=== PATIENT | male | born 1970 | race Caucasian/White ===

== ENCOUNTER 2020-02-02 05:42 | Emergency (ER) | payer MEDICAID ==
[2020-02-02] MEDS ORDERED: MORPHINE SULFATE 10 MG/ML INJ IV ONE ×2 (06:05→09:14)
[2020-02-02] MEDS ORDERED: ONDANSETRON HCL INJ/PF 4 MG/2 ML SDV IV ONE (06:06)
[2020-02-02 06:14] LABS: ABSOLUTE BASOPHILS # (AUTO) 0.1 10^3/uL (0.0-0.2); ABSOLUTE EOSINOPHILS # (AUTO) 0.3 10^3/uL (0.0-0.6); ABSOLUTE LYMPHOCYTES (AUTO) 1.8 10^3/uL (0.5-4.7); ABSOLUTE MONOCYTES (AUTO) 0.8 10^3/uL (0.1-1.4); ABSOLUTE NEUT (AUTO) 6.7 10^3/uL (1.7-8.2); BASOPHILS % (AUTO) 0.6 % (0-2); EOSINOPHILS % (AUTO) 3.3 % (0-6); HEMATOCRIT 46.7 % (37.9-51.0); HEMOGLOBIN 16.2 g/dL (13.5-17.0); LYMPHOCYTES % (AUTO) 18.7 % (13-45); MEAN CORPUSCULAR HEMOGLOBIN 32.8 pg (27.0-33.4); MEAN CORPUSCULAR HGB CONC 34.8 g/dL (32.0-36.0); MEAN CORPUSCULAR VOLUME 94 fl (80-97); MONOCYTES % (AUTO) 8.4 % (3-13); PLATELET COUNT 239 10^3/uL (150-450); RED BLOOD COUNT 4.96 10^6/uL (4.35-5.55); RED CELL DISTRIBUTION WIDTH 14.3 % (11.5-14.0); TOTAL CELLS COUNTED % (AUTO) 100 %; WHITE BLOOD COUNT 9.7 10^3/uL (4.0-10.5)
[2020-02-02 06:31] LABS: INTERNATIONAL RATION (INR) 2.46; PROTHROMBIN TIME 27.2 SEC (11.4-15.4)
[2020-02-02 06:32] LABS: ALBUMIN 4.5 g/dL (3.5-5.0); ALKALINE PHOSPHATASE 63 U/L (38-126); ANION GAP 6 (5-19); ASPARTATE AMINO TRANSFERASE 40 U/L (17-59); BILIRUBIN,TOTAL 0.4 mg/dL (0.2-1.3); BLOOD UREA NITROGEN 18 mg/dL (7-20); CALCIUM 9.4 mg/dL (8.4-10.2); CARBON DIOXIDE 33 mmol/L (22-30); CHLORIDE 100 mmol/L (98-107); CREATINE KINASE 271 U/L (55-170); GLUCOSE 127 mg/dL (75-110); PARTIAL THROMBOPLASTIN TIME 41.5 SEC (23.5-35.8); POTASSIUM 3.9 mmol/L (3.6-5.0); TOTAL PROTEIN 7.3 g/dL (6.3-8.2)
[2020-02-02 06:44] LABS: CREATINE KINASE MB 3.77 ng/mL (<4.55)
[2020-02-02 06:47] LABS: TROPONIN I < 0.012 ng/mL
--- NOTE | 2020-02-02 07:53 | RADIOLOGY REPORT (SQ) ---
EXAM: XR Chest, 1 View EXAM DATE/TIME: 02/02/2020 05:55 CLINICAL HISTORY: The patient is 49 years old and is Male; chest pain TECHNIQUE: Frontal view of the chest. COMPARISON: No relevant prior studies available. FINDINGS: LUNGS: Apparent extraneous artifact or possibly postsurgical change projecting over the left upper lung. The lungs are otherwise clear. No consolidation. PLEURAL SPACE: Unremarkable. No pneumothorax. HEART: Mild enlargement of the cardiac silhouette. MEDIASTINUM: Unremarkable. BONES/JOINTS: Degenerative changes of the spine. No obvious acute fracture. TUBES, LINES AND DEVICES: Left-sided pacemaker in place with single lead terminating at the level of the right ventricle. UPPER ABDOMEN: The left hemidiaphragm is slightly elevated. IMPRESSION: No acute findings visualized in the chest.
[2020-02-02] MEDS ORDERED: ASPIRIN 81 MG TABLET, CHEWABLE ONE (08:16)
[2020-02-02] MEDS ORDERED: ASPIRIN 81 MG TABLET, CHEWABLE PO ONE (08:16)
[2020-02-02] MEDS ORDERED: CARVEDILOL 12.5 MG TABLET PO ONE (08:32)
[2020-02-02] MEDS ORDERED: FUROSEMIDE INJ/PF 20 MG/2 ML SDV IV ONE (09:11)
[2020-02-02] MEDS ORDERED: AMIODARONE HCL 200 MG TABLET PO ONE (09:11)
[2020-02-02] MEDS ORDERED: ISOSORBIDE DINITRATE 10 MG TABLET PO ONE (09:13)
[2020-02-02] MEDS ORDERED: DULOXETINE HCL 30 MG CAPSULE.DR PO ONE (09:16)
--- NOTE | 2020-02-02 10:25 | RADIOLOGY REPORT (SQ) ---
EXAM DESCRIPTION: CTA CHEST IMAGES COMPLETED DATE/TIME: 02/02/2020 9:38 am REASON FOR STUDY: chest pain COMPARISON: Same day radiograph TECHNIQUE: CT scan of the chest performed using helical scanning technique with dynamic intravenous contrast injection. Images reviewed with lung, soft tissue and bone windows. Reconstructed coronal and sagittal MPR images reviewed. Additional 3 dimensional post-processing performed to develop Maximal Intensity Projection images ([place] P). All images stored on PACS. All CT scanners at this facility use dose modulation, iterative reconstruction, and/or weight based d osing when appropriate to reduce radiation dose to as low as reasonably achievable (ALARA). [facility]: Dose Right [facility]: CareDose [facility]: Dose Right [facility]: Teradose 4D [facility]: [employer] CONTRAST TYPE AND DOSE: contrast/concentration: Isovue 350.00 mmol/ml; Total Contrast Delivered: 75. 0 ml; Total Saline Delivered: 70.0 ml Contrast bolus optimized for the pulmonary arteries. Not diagnostic for the aorta. RENAL FUNCTION: Creatinine 1.03 RADIATION DOSE: CT Rad equipment meets quality standard of care and radiation dose reduction techniq ues were employed. CTDIvol: 23.2 - 35.9 mGy. DLP: 1314 mGy-cm. . LIMITATIONS: None. FINDINGS: LUNGS AND PLEURA: Postsurgical changes within the left hemithorax with left hilar surgical clips. There is mild nonspecific left lower lobe consolidation and ground-glass attenuation along t he posteromedial aspect. Mild herniation of the left lung parenchyma laterally, likely postsurgical related. No significant pleural effusion. No pneumothorax. AORTA AND GREAT VESSELS: Aneurysmal dilation of the ascending aorta. Aortic root measures up to 4.6 cm. Mild tortuosity and scattered atherosclerosis of the descending thoracic aorta. Evaluation for dissection not possible secondary to bolus timing. HEART: Cardiomegaly. No pericardial effusion. No significant calcified coronary atherosclerosis. N ormal right to left ventricular ratio. No significant coronary artery calcifications. PULMONARY ARTERIES: No emboli visualized in the main pulmonary arteries or the segmental branches. HILAR AND MEDIASTINAL STRUCTURES: Postsurgical changes within the left hilum. No discrete adenopathy . HARDWARE: Surgical clips within the left hilum. Left-sided cardiac pacer with leads in the right atr ium and right ventricle. UPPER ABDOMEN: No significant findings. Limited exam. THYROID AND OTHER SOFT TISSUES: No masses. No adenopathy. BONES: No acute or significant finding. 3D MIPS: Confirm above findings. OTHER: No other significant finding. IMPRESSION: 1. No evidence of pulmonary embolus or other acute intrathoracic process. 2. Postsurgical changes within the left hemithorax with nonspecific lower lobe consolidation ground- glass attenuation, likely postsurgical change. 3. Cardiomegaly. Aneurysmal dilation of the aortic root measuring up to 4.6 cm. COMMENT: Quality ID # [id number]: Final reports with documentation of one or more dose reduction techniques (e.g., Automated exposure control, adjustment of the mA and/or kV according to patient size, use of iterative reconstruction technique) TECHNICAL DOCUMENTATION: JOB ID: [id number] 2010 [employer]- All Rights Reserved Reading location - IP/workstation name: [email or web address]
[2020-02-02] MEDS ORDERED: SPIRONOLACTONE 25 MG TABLET PO ONE (10:38)
--- NOTE | 2020-02-02 10:40 | EKG REPORT ---
SEVERITY:- ABNORMAL ECG - ATRIAL FIBRILLATION, V-RATE 68-105 LEFT BUNDLE BRANCH BLOCK : Confirmed by: Satnam Higginbotham MD 02-Feb-2020 10:39:25
--- NOTE | 2020-02-02 10:40 | EKG REPORT ---
SEVERITY:- ABNORMAL ECG - ATRIAL FIBRILLATION, V-RATE 77-116 LEFT BUNDLE BRANCH BLOCK : Confirmed by: Satnam Higginbotham MD 02-Feb-2020 10:39:43
--- NOTE | 2020-02-02 11:41 | ER Document Report ---
Entered by BRUCE CASIANO SCRIBE 02/02/20 0651 Acting as scribe for:EVELIA SANDS MD ED Cardiac - General Chief Complaint: Chest Pain Stated Complaint: CHEST PAIN/BACK PAIN/SOB Time Seen by Provider: 02/02/20 06:08 Information source: Patient Notes: This 49 year old male patient presents to the emergency department today with complaints of 4/5 chest pain. Patient states he had chest pain last night and vomited several times. Patient states his chest pain decreased enough to fall asleep. Patient states he woke up early this morning and an x1 hour later he had chest pain again. Patient states he was sweating at first and the pain radiated to his back. Patient states he has a headache and denies a productive cough. Patient also reports pain in the back of his legs bilaterally. Patient states he moved here from [place] x1.5 months ago and has seen a Physician to get all of his medications. Patient denies taking his HTM medication this morning or anything for his chest pain yesterday or this morning. Patient reports a history of CHF, x8 pulmonary embolisms, CVA, heart attack, HTN, and Afib. - Related Data Allergies/Adverse Reactions: No Known Allergies Allergy (Unverified 02/02/20 06:12) Past Medical History - General Information source: Patient - Social History Smoking Status: Current Some Day Smoker Cigarette use (# per day): Yes Frequency of alcohol use: None Drug Abuse: None Lives with: Family Family History: Reviewed & Not Pertinent Patient has homicidal ideation: No - Past Medical History Cardiac Medical History: Reports: Hx Atrial Fibrillation, Hx Congestive Heart Failure, Hx Heart Attack - 2016, Hx Hypertension, Hx Pulmonary Embolism - x8 Pulmonary Medical History: Reports: Hx COPD, Hx Pneumonia Neurological Medical History: Reports: Hx Cerebrovascular Accident - 2018; R sided deficit Past Surgical History: Reports: Hx Cardiac Catheterization Review of Systems - Review of Systems Constitutional: See HPI, Diaphoresis EENT: No symptoms reported Cardiovascular: See HPI, Chest pain Respiratory: See HPI, Other - no productive cough Gastrointestinal: See HPI, Vomiting - last night Genitourinary: No symptoms reported Male Genitourinary: No symptoms reported Musculoskeletal: See HPI, Back pain Skin: No symptoms reported Hematologic/Lymphatic: No symptoms reported Neurological/Psychological: See HPI, Headaches -: Yes All other systems reviewed and negative Physical Exam - Vital signs Vitals: BP 169/124 H 02/02/20 06:00 - General General appearance: Alert Notes: Resting comfortably - HEENT Head: Normocephalic, Atraumatic Eyes: Normal Pupils: PERRL - Respiratory Respiratory status: No respiratory distress Chest status: Nontender Breath sounds: Wheezing, Other - Diminished in bases bilaterally Chest palpation: Normal - Cardiovascular Heart sounds: Normal auscultation Murmur: No Pulses: Normal: Dorsalis pedis Notes: Heart rhythm is irregular. Heart rate is normal. - Abdominal Inspection: Morbidly Obese Distension: Distended. No: Fluid wave Bowel sounds: Normal Tenderness: Nontender - Extremities General upper extremity: Normal inspection. No: Edema General lower extremity: Normal inspection, Other - No pitting edema - Neurological Neuro grossly intact: Yes Cognition: Normal Orientation: AAOx4 Speech: Normal - Psychological Associated symptoms: Normal affect, Normal mood - Skin Skin Temperature: Warm Skin Moisture: Dry Skin Color: Normal Course - Re-evaluation Re-evalutation: 02/02/20 11:33 Patient states he is chest pain-free at this time. Patient's vital signs have improved as well. Patient's troponin has been negative x2 and patient had a CTA of his chest which did not show any infiltrates no pulmonary emboli and no other acute cardiothoracic vessel disease noted. - Vital Signs Vital signs: Temp Pulse Resp BP Pulse Ox 12 144/118 H 96 02/02/20 10:00 02/02/20 10:00 02/02/20 10:00 02/02/20 11:34 Current vital signs show showed blood pressure 138/88 respirations was 12 and oxygenation was 9697%. - Laboratory Result Diagrams: 02/02/20 06:03 02/02/20 06:03 Laboratory results interpreted by me: 02/02/20 02/02/20 02/02/20 06:03 06:03 06:03 RDW 14.3 H PT 27.2 H APTT 41.5 H Carbon Dioxide 33 H Glucose 127 H Creatine Kinase 271 H NT-Pro-B Natriuret Pep 02/02/20 06:03 RDW PT APTT Carbon Dioxide Glucose Creatine Kinase NT-Pro-B Natriuret Pep 761 H 02/02/20 11:35 Laboratories show a BNP of 761 also shows troponin x2 that is negative. - Diagnostic Test Radiology reviewed: Image reviewed, Reports reviewed Radiology results interpreted by me: 02/02/20 11:36 Chest x-ray shows no acute process. CTA of chest shows no evidence of pulmonary emboli. There is surgical clips in the left lung with some groundglass appearance which is considered part of postsurgical changes. There is aneurysmal dilatation of the root of the aorta otherwise no dissection noted. - EKG Interpretation by Me Additional EKG results interpreted by me: 02/02/20 11:38 Twelve-lead EKG shows atrial fib with variable ventricular response. Patient has left bundle branch block that is not new. Left bundle branch block as per history of patient. Discharge - Discharge Clinical Impression: Atrial fibrillation with rapid ventricular response, Chronic CHF, Chest pain Condition: Stable Disposition: HOME, SELF-CARE Instructions: Aspirin (Cardiac) ([facility]) Additional Instructions: Atrial fibrillation with variable ventricular response noted on presentation and associated with chest pain today. Also patient has history of prior pulmonary emboli. No emboli were found today and thus far on cardiac testing is been no evidence of increase in troponin values x2 with both remain normal. Patient is chest pain-free at this time and feeling better after getting his a.m. medications. Patient takes warfarin which is a p.m. dose that he takes this babs lewis. Patient is instructed to be discharged home and follow-up with his primary care physician and to consider following up with cardiology. There are no new prescriptions added to his regimen at this time. I personally performed the services described in the documentation, reviewed and edited the documentation which was dictated to the scribe in my presence, and it accurately records my words and actions.
[2020-02-02 11:47] VITALS: BP 129/96
== END 2020-02-02 12:00 | disposition home or self-care (01) ==
LOC: ER 05:42
DX: I48.20 Chronic atrial fibrillation, unspecified (principal); R07.9 Chest pain, unspecified; R51 Headache; R61 Generalized hyperhidrosis; F17.210 Nicotine dependence, cigarettes, uncomplicated; I50.9 Heart failure, unspecified; I11.0 Hypertensive heart disease with heart failure; I69.951 Hemiplegia and hemiparesis following unspecified cerebrovascular disease affecting right dominant side; I25.2 Old myocardial infarction
CPT/HCPCS: 93005; 96376; 99284; 96374; 96375; 36415; 82553; 82550; 85025; 85610; 85730; 80053; 84484; 85379; 83880; 71045; 71275; 93010; J1940; J3490 ×3; J2270; J2405

== ENCOUNTER 2020-04-03 16:29 | Emergency (ER) | payer MEDICAID ==
--- NOTE | 2020-04-03 16:47 | ER Document Report ---
ED Medical Screen (RME) - General Chief Complaint: Abdominal Pain Stated Complaint: ABDOMINAL PAIN,RIGHT LEG PAIN Time Seen by Provider: 04/03/20 16:36 Mode of Arrival: Wheelchair Information source: Patient Notes: 49-year-old male with history of PE, DVT and A. fib on Eliquis presenting with chief complaint of chest pain, shortness of breath, right leg pain and abdominal pain. Patient reports chest pain and shortness of breath started today, feels similar to when he had a pulmonary embolism. He states the right leg pain started about 4 days ago, feels similar to when he had a DVT. He was abdominal pain has been persistent over the last few days, he states he has not had a bowel movement in greater than 1 week. Patient alert, oriented, vital signs reviewed, patient does not appear to be in any acute distress at this time. Lung sounds clear and equal bilaterally. Heart sounds S1-S2 present, normal rate. I have greeted and performed a rapid initial assessment of this patient. A comprehensive ED assessment and evaluation of the patient, analysis of test results and completion of the medical decision making process will be conducted by additional ED providers. I have specifically instructed the patient or family members with the patient to immediately return to any nursing staff should anything change in the patient's condition or with their chief complaint. - Related Data Allergies/Adverse Reactions: No Known Allergies Allergy (Verified 04/03/20 16:36) Home Medications: Patient unable to recall home medications Past Medical History - Social History Frequency of alcohol use: None Drug Abuse: None - Past Medical History Cardiac Medical History: Reports: Hx Atrial Fibrillation, Hx Congestive Heart Failure, Hx Heart Attack - 2016, Hx Hypertension, Hx Pulmonary Embolism - x8 Pulmonary Medical History: Reports: Hx COPD, Hx Pneumonia Neurological Medical History: Reports: Hx Cerebrovascular Accident - 2018; R sided deficit Past Surgical History: Reports: Hx Cardiac Catheterization Physical Exam - Vital signs Vitals: Temp Pulse Resp BP Pulse Ox 98.3 F 88 24 H 130/90 H 97 04/03/20 16:34 04/03/20 16:34 04/03/20 16:34 04/03/20 16:34 04/03/20 16:34 Course - Vital Signs Vital signs: Temp Pulse Resp BP Pulse Ox 98.3 F 88 24 H 130/90 H 97 04/03/20 16:34 04/03/20 16:34 04/03/20 16:34 04/03/20 16:34 04/03/20 16:34
[2020-04-03 17:10] LABS: ABSOLUTE EOSINOPHILS # (AUTO) 0.4 10^3/uL (0.0-0.6); ABSOLUTE LYMPHOCYTES (AUTO) 1.8 10^3/uL (0.5-4.7); ABSOLUTE MONOCYTES (AUTO) 0.8 10^3/uL (0.1-1.4); ABSOLUTE NEUT (AUTO) 6.5 10^3/uL (1.7-8.2); BASOPHILS % (AUTO) 0.3 % (0-2); EOSINOPHILS % (AUTO) 3.7 % (0-6); HEMATOCRIT 45.9 % (37.9-51.0); HEMOGLOBIN 15.9 g/dL (13.5-17.0); LYMPHOCYTES % (AUTO) 18.9 % (13-45); MEAN CORPUSCULAR HEMOGLOBIN 32.2 pg (27.0-33.4); MEAN CORPUSCULAR HGB CONC 34.6 g/dL (32.0-36.0); MEAN CORPUSCULAR VOLUME 93 fl (80-97); MONOCYTES % (AUTO) 8.3 % (3-13); PLATELET COUNT 233 10^3/uL (150-450); RED BLOOD COUNT 4.92 10^6/uL (4.35-5.55); RED CELL DISTRIBUTION WIDTH 13.6 % (11.5-14.0); SEGMENTED NEUTROPHILS % (AUTO) 68.8 % (42-78); TOTAL CELLS COUNTED % (AUTO) 100 %; WHITE BLOOD COUNT 9.5 10^3/uL (4.0-10.5)
[2020-04-03] MEDS ORDERED: MAGNESIUM CITRATE 296 ML BOTTLE PO ONE (17:22)
[2020-04-03 17:28] LABS: ALBUMIN 4.3 g/dL (3.5-5.0); ALKALINE PHOSPHATASE 83 U/L (38-126); ANION GAP 8 (5-19); ASPARTATE AMINO TRANSFERASE 34 U/L (17-59); BILIRUBIN,DIRECT 0.3 mg/dL (0.0-0.4); BILIRUBIN,TOTAL 0.7 mg/dL (0.2-1.3); BLOOD UREA NITROGEN 14 mg/dL (7-20); CALCIUM 9.2 mg/dL (8.4-10.2); CARBON DIOXIDE 27 mmol/L (22-30); CHLORIDE 105 mmol/L (98-107); GLUCOSE 117 mg/dL (75-110); POTASSIUM 4.8 mmol/L (3.6-5.0); TOTAL PROTEIN 6.7 g/dL (6.3-8.2)
[2020-04-03 18:38] LABS: APPEARANCE,URINE CLEAR; BILIRUBIN,URINE NEGATIVE (NEGATIVE); COLOR,URINE YELLOW; GLUCOSE, URINE NEGATIVE (NEGATIVE); KETONES,URINE NEGATIVE (NEGATIVE); LEUKOCYTE ESTERASE,URINE NEGATIVE (NEGATIVE); NITRITE,URINE NEGATIVE (NEGATIVE); PROTEIN,URINE NEGATIVE (NEGATIVE); URINE SPECIFIC GRAVITY 1.015; UROBILINOGEN,URINE NEGATIVE mg/dL (<2.0)
--- NOTE | 2020-04-03 19:33 | RADIOLOGY REPORT (SQ) ---
EXAM DESCRIPTION: CTA CHEST IMAGES COMPLETED DATE/TIME: 04/03/2020 7:10 pm REASON FOR STUDY: cp/sob, hx of PE COMPARISON: 02/02/2020 TECHNIQUE: CT scan of the chest performed using helical scanning technique with dynamic intravenous contrast injection. Images reviewed with lung, soft tissue and bone windows. Reconstructed coronal and sagittal MPR images reviewed. Additional 3 dimensional post-processing performed to develop Maximal Intensity Projection images (AL P). All images stored on PACS. All CT scanners at this facility use dose modulation, iterative reconstruction, and/or weight based d osing when appropriate to reduce radiation dose to as low as reasonably achievable (ALARA). [facility]: Dose Right [facility]: CareDose [facility]: Dose Right [facility]: Teradose 4D [facility]: [employer] CONTRAST TYPE AND DOSE: contrast/concentration: Isovue 350.00 mmol/ml; Total Contrast Delivered: 100 .0 ml; Total Saline Delivered: 80.0 ml Contrast bolus optimized for the pulmonary arteries. Not diagnostic for the aorta. RENAL FUNCTION: GFR > 60. RADIATION DOSE: CT Rad equipment meets quality standard of care and radiation dose reduction techniq ues were employed. CTDIvol: 7.4 - 41.7 mGy. DLP: 5139 mGy-cm. . LIMITATIONS: Motion artifact. This limits evaluation of the peripheral arterial branches. FINDINGS: LUNGS AND PLEURA: Mild scarring in the left lung. Chronic appearance. AORTA AND GREAT VESSELS: Limited assessment due to limited contrast bolus. Similar configuration. N o progressive dilatation of the ascending aorta. Slight ectasia with regional calcifications and cli ps along the descending aorta without change. HEART: Cardiomegaly without pericardial effusion. No significant coronary artery calcifications. PULMONARY ARTERIES: Central pulmonary arteries are grossly free of clot. Peripheral branches are tapia ited, as above. HILAR AND MEDIASTINAL STRUCTURES: No identified masses or abnormal nodes. HARDWARE: Left pacer. UPPER ABDOMEN: See separate dictation same date. THYROID AND OTHER SOFT TISSUES: No masses. No adenopathy. BONES: No acute or significant finding. 3D MIPS: Confirm above findings. OTHER: No other significant finding. IMPRESSION: 1. No acute or suspicious thoracic abnormality. Stable appearance compared to prior with areas of ao rtic dilatation and cardiomegaly. There is no central pulmonary embolus but peripheral branch evalua tion is limited by motion artifact. COMMENT: Quality ID # [id number]: Final reports with documentation of one or more dose reduction techniques (e.g., Automated exposure control, adjustment of the mA and/or kV according to patient size, use of iterative reconstruction technique) TECHNICAL DOCUMENTATION: JOB ID: [id number] 2010 [employer]- All Rights Reserved Reading location - IP/workstation name: [email or web address]
--- NOTE | 2020-04-03 19:37 | RADIOLOGY REPORT (SQ) ---
EXAM DESCRIPTION: CT ABD/PELVIS WITH IV ONLY IMAGES COMPLETED DATE/TIME: 04/03/2020 7:10 pm REASON FOR STUDY: abd pain/distention/no BM x1 week COMPARISON: None. TECHNIQUE: CT scan of the abdomen and pelvis performed using helical scanning technique with dynamic intravenous contrast injection. No oral contrast. Images reviewed with lung, soft tissue, and bone windows. Reconstructed coronal and sagittal MPR images reviewed. Delayed images for evaluation of the urinary system also acquired. All images stored on PACS. All CT scanners at this facility use dose modulation, iterative reconstruction, and/or weight based d osing when appropriate to reduce radiation dose to as low as reasonably achievable (ALARA). [facility]: Dose Right [facility]: CareDose [facility]: Dose Right [facility]: Teradose 4D [facility]: [employer] RENAL FUNCTION: GFR > 60. RADIATION DOSE: . LIMITATIONS: None. FINDINGS: LOWER CHEST: Please correlate with earlier CT chest. LIVER: Normal size. No masses. No dilated ducts. SPLEEN: Normal size. No focal lesions. PANCREAS: No masses. No significant calcifications. No adjacent inflammation or peripancreatic fluid collections. Pancreatic duct not dilated. GALLBLADDER: No identified stones by CT criteria. No inflammatory changes to suggest cholecystitis. ADRENAL GLANDS: No significant masses or asymmetry. RIGHT KIDNEY AND URETER: No solid masses. No significant calcification. No hydronephrosis or hydroure ter. LEFT KIDNEY AND URETER: No solid masses. No significant calcification. No hydronephrosis or hydrouret er. AORTA AND VESSELS: No aneurysm. No dissection. Renal arteries, SMA, celiac without stenosis. RETROPERITONEUM: No retroperitoneal adenopathy, hemorrhage or masses. BOWEL AND PERITONEAL CAVITY: Redundant large bowel with a large amount of stool throughout. This inc ludes in the rectosigmoid colon. No mechanical bowel fixed obstruction. Mild left lower quadrant fl uid-filled loops may reflect minimal ileus. No ascites. No abnormal gas. APPENDIX: Normal. PELVIS: No mass. No free fluid. Normal bladder. ABDOMINAL WALL: No masses. No hernias. BONES: No significant or acute findings. OTHER: No other significant finding. IMPRESSION: 1. No acute abdominopelvic abnormality. Stool retention. TECHNICAL DOCUMENTATION: JOB ID: [id number] Quality ID # [id number]: Final reports with documentation of one or more dose reduction techniques (e.g., Au tomated exposure control, adjustment of the mA and/or kV according to patient size, use of iterative reconstruction technique) 2010 [employer]- All Rights Reserved Reading location - IP/workstation name: [email or web address]
--- NOTE | 2020-04-03 20:37 | EKG REPORT ---
SEVERITY:- ABNORMAL ECG - ATRIAL FIBRILLATION, V-RATE 62-93 LEFT BUNDLE BRANCH BLOCK : Confirmed by: Satnam Higginbotham MD 03-Apr-2020 20:37:09
--- NOTE | 2020-04-03 20:46 | RADIOLOGY REPORT (SQ) ---
EXAM DESCRIPTION: US EXTREMITY VEINS UNILATERAL COMPLETED DATE/TME: 04/03/2020 16:40 CLINICAL HISTORY: 49 years, Male, RLE pain, hx of DVT COMPARISON: EXAM DESCRIPTION: CLINICAL HISTORY: 49 years Male RLE pain, hx of DVT COMPARISON: None. TECHNIQUE: Duplex and color Doppler imaging performed to evaluate the extremity deep venous structures. Compression imaging and augmentation imaging performed. FINDINGS: No thrombus is identified in the deep venous structures imaged. There is normal flow, compressibility, and augmentation throughout. IMPRESSION: No DVT is identified.
--- NOTE | 2020-04-03 22:55 | ER Document Report ---
ED General - General Chief Complaint: Abdominal Pain Stated Complaint: ABDOMINAL PAIN,RIGHT LEG PAIN Time Seen by Provider: 04/03/20 16:36 Mode of Arrival: Wheelchair Notes: This 49-year-old man presents to the emergency department with a complaint of chest and abdominal discomfort. He uses opiate medications for back pain and has not had a bowel movement in over a week. He is using a stool softener and no other stimulant. - Related Data Allergies/Adverse Reactions: No Known Allergies Allergy (Verified 04/03/20 16:36) Home Medications: Patient unable to recall home medications Past Medical History - General Information source: Patient - Social History Smoking Status: Current Every Day Smoker Frequency of alcohol use: None Drug Abuse: None Family History: Reviewed & Not Pertinent - Past Medical History Cardiac Medical History: Reports: Hx Atrial Fibrillation, Hx Congestive Heart Failure, Hx Heart Attack - 2016, Hx Hypertension, Hx Pulmonary Embolism - x8 Pulmonary Medical History: Reports: Hx COPD, Hx Pneumonia Neurological Medical History: Reports: Hx Cerebrovascular Accident - 2018; R sided deficit Past Surgical History: Reports: Hx Cardiac Catheterization Review of Systems - Review of Systems Notes: Constitutional: Negative for fever. HENT: Negative for sore throat. Eyes: Negative for visual changes. Cardiovascular: Negative for chest pain. Respiratory: Negative for shortness of breath. Gastrointestinal: See HPI Genitourinary: Negative for dysuria. Musculoskeletal: Negative for back pain. Skin: Negative for rash. Neurological: Negative for headaches, weakness or numbness. 10 point ROS negative except as marked above and in HPI. Physical Exam - Vital signs Vitals: Temp Pulse Resp BP Pulse Ox 98.3 F 88 24 H 130/90 H 97 04/03/20 16:34 04/03/20 16:34 04/03/20 16:34 04/03/20 16:34 04/03/20 16:34 - Notes Notes: PHYSICAL EXAMINATION: Physical Exam: General: Well-nourished well-developed in no acute distress HEENT: NC/AT, pupils equal round and reactive to light, MM moist,nares clear, oropharynx clear, airway patent Neck: supple, no adenopathy, no masses. Good range of motion Lungs: clear, no wheezing, no rales no rhonchi CVS: Regular rate and rhythm no murmur gallop or rub Abdomen: Soft, active, + tenderness, no guarding, no rebound, firm, no masses, no hepatosplenomegaly Ext: No edema, clubbing or cyanosis. Neuro: Alert and responsive, moving all 4 extremities on command, cranial nerves intact, no focal findings Skin: Intact no open lesions, no rash PSYCH: Normal mood, normal affect. Course - Re-evaluation Re-evalutation: 04/03/20 22:51 Review of the laboratory data as well as CT scans were negative. Patient was given a bottle of magnesium citrate without results, a soapsuds enema was given and the patient had excellent results and states that he feels much better with resolution of his abdominal and chest discomforts. The patient is being discharged home I have also written in his discharge paperwork to use Senokot or MiraLAX if he is gone more than 2 days without a bowel movement the patient is in agreement with this plan. - Vital Signs Vital signs: Temp Pulse Resp BP Pulse Ox 97.6 F 78 18 118/72 98 04/03/20 23:44 04/03/20 23:44 04/03/20 23:44 04/03/20 23:44 04/03/20 23:44 - Laboratory Result Diagrams: 04/03/20 16:48 04/03/20 16:48 Laboratory results interpreted by me: 04/03/20 16:48 Glucose 117 H 04/03/20 22:53 I have reviewed laboratory data and used this information for the treatment decisions regarding the patient. - Diagnostic Test Radiology reviewed: Image reviewed, Reports reviewed Radiology results interpreted by me: 04/03/20 22:55 CTA chest: No pulmonary embolus CT abdomen and pelvis IV contrast: No acute intra-abdominal pathology, large volume of stool retention Doppler ultrasound lower extremities: No DVT. - EKG Interpretation by [facility]: A.Fib - EKG interpreted by Dr. Hsu: Atrial fibrillation, rate 62-93, left bundle branch block, left axis deviation, no acute ST or T wave abnormalities, no ischemic findings, compared to EKG dated 02/02/2020, there is no interval changes. Discharge - Discharge Clinical Impression: Non-cardiac chest pain, Fecal impaction of colon Abdominal pain Qualifiers: Abdominal location: generalized Qualified Code(s): R10.84 - Generalized abdominal pain Condition: Good Disposition: HOME, SELF-CARE Instructions: Constipation ([facility]) Additional Instructions: You were seen in the emergency department with symptoms related to stool impaction of the GI tract. Please continue your stool softener and if you go more than 2 days without a bowel movement using a bowel stimulant like MiraLAX or Senokot would be important to prevent a recurrence of this medical emergency. If your symptoms are worsening or if you have other concerns you may return to the emergency department for further evaluation and treatment HOME CARE INSTRUCTIONS & INFORMATION: Thank you for choosing us for your medical needs. We hope you're satisfied with the care you received. After you leave, you must properly care for your problem and, at the same time, observe its progress. Any condition can change. Some illnesses can change rapidly over hours or days. If your condition worsens, return to the Emergency Department or see your physician promptly. ABOUT YOUR X-RAYS AND EKG'S: If you had an EKG or X-rays taken, they have been read by the Emergency Physician. The X-rays and EKG's will also be read by a Radiologist or [facility]er System Supervisor within 24 hours. If discrepancies are noted, you will be notified by telephone. Please be certain the ED has a correct telephone number & address where you can be reached. Also, realize that some fractures or abnormalities do not show up on initial X-rays. If your symptoms continue, see your physician. ABOUT YOUR LABORATORY TEST: If you had laboratory tests, the results have been reviewed by the Emergency Physician. Some test results (for example cultures) may not be available for several days. You will be contacted if any test result shows you need additional treatment. Please be certain the ED has a correct [facility] number and address where you can be reached. ABOUT YOUR MEDICATIONS: You will receive instructions on how to take your medicine on the prescription label you receive. Additional information may be provided by the Pharmacy. If you have questions afterwards, call the ED for clarification or further instructions. Some prescribed medications may cause drowsiness. Do not perform tasks such as driving a car or operating machinery without consulting your Pharmacist. If you feel you need a refill of pain medication, your condition will need re-evaluation. Please do not call for a refill of any medication. ABOUT YOUR SIGNATURE: Signature of this document acknowledges to followin. Understanding that you received emergency treatment and that you may be released before al medical problems are known or treated. Please be certain the ED has a correct phone number & address where you can be reached. 2. Acknowledgement that you will arrange for follow-up care as recommended. 3. Authorization for the Emergency Physician to provide information to your follow-up Physician in order to maximize your care. AT ANY TIME, IF YOUR SYMPTOMS CHANGE SIGNIFICANTLY OR WORSEN OR YOU DEVELOP NEW SYMPTOMS, RETURN TO THE EMERGENCY DEPARTMENT IMMEDIATELY FOR RE-EVALUATION. OUR GOAL IS TO PROVIDE EXCELLENT MEDICAL CARE! WE HOPE THAT WE HAVE MET YOUR EXPECTATIONS DURING YOUR EMERGENCY DEPARTMENT VISIT AND THAT YOU FEEL YOU HAVE RECEIVED EXCELLENT CARE!
[2020-04-03 23:45] VITALS: BP 118/72
== END 2020-04-03 23:45 | disposition home or self-care (01) ==
LOC: ER 16:29
DX: R07.89 Other chest pain (principal); R10.84 Generalized abdominal pain; K56.41 Fecal impaction; M79.604 Pain in right leg; F17.200 Nicotine dependence, unspecified, uncomplicated; I48.91 Unspecified atrial fibrillation; I50.9 Heart failure, unspecified; I11.0 Hypertensive heart disease with heart failure; I69.951 Hemiplegia and hemiparesis following unspecified cerebrovascular disease affecting right dominant side; I25.2 Old myocardial infarction
CPT/HCPCS: 93005; 99285; 36415; 83690; 85025; 80053; 81001; 84484; 93971; 71275; 74177; 93010; J3490

== ENCOUNTER 2020-05-17 13:54 | Emergency (ER) | payer MEDICAID ==
[2020-05-17 14:04] VITALS: BP 120/83
--- NOTE | 2020-05-17 14:53 | ER Document Report ---
HPI - HPI Time Seen by Provider: 05/17/20 14:12 Pain Level: 4 Notes: 49-year-old male to the emergency department with complaints of right knee pain that has been going on for over 1 month. He states that he initially saw [facility] for the knee pain. He had x-rays and was supposed to get a referral for an orthopedist but it never went through. He went back to [facility] this morning to try to get this referral. He had x-rays there but apparently has Medicaid primary care designation has changed. He now has [facility] on his Medicaid. [facility] as advised him that he cannot get a referral through the [facility] for an orthopedist. Patient states that the pain is worse when he goes from sitting to standing. He states that it is very stiff all the time. He is in chronic pain management and taking oxycodone already. He is not taking any other medicines with this. He denies any falls. He states the pain is the worse when he goes to stand up. - ROS Systems Reviewed and Negative: Yes All other systems reviewed and negative - CONSTITUTIONAL Constitutional: DENIES: Fever, Chills - EENT EENT: DENIES: Sore Throat, Ear Pain - NEURO Neurology: DENIES: Headache, Weakness - CARDIOVASCULAR Cardiovascular: DENIES: Chest pain - RESPIRATORY Respiratory: DENIES: Trouble Breathing, Coughing - GASTROINTESTINAL Gastrointestinal: DENIES: Abdominal Pain, Nausea, Patient vomiting, Diarrhea - MUSCULOSKELETAL Musculoskeletal: REPORTS: Extremity pain - Right knee pain - DERM Skin Color: Normal Skin Problems: None Past Medical History - General Information source: Patient - Social History Smoking Status: Former Smoker Frequency of alcohol use: None Drug Abuse: None Family History: Reviewed & Not Pertinent - Past Medical History Cardiac Medical History: Reports: Hx Atrial Fibrillation, Hx Congestive Heart Failure, Hx Heart Attack - 2016, Hx Hypertension, Hx Pulmonary Embolism - x8 Pulmonary Medical History: Reports: Hx COPD, Hx Pneumonia Neurological Medical History: Reports: Hx Cerebrovascular Accident - 2018; R sided deficit Past Surgical History: Reports: Hx Cardiac Catheterization Vertical Provider Document - CONSTITUTIONAL Agree With Documented VS: Yes Exam Limitations: No Limitations General Appearance: WD/WN - HEENT HEENT: Atraumatic, Normocephalic, PERRLA - NECK Neck: Normal Inspection, Supple - RESPIRATORY Respiratory: Breath Sounds Normal, No Respiratory Distress. negative: Rales, Rhonchi, Wheezing - CARDIOVASCULAR Cardiovascular: Regular Rate, Regular Rhythm, No Murmur - GI/ABDOMEN Gastrointestinal: Abdomen Soft, Abdomen Non-Tender, No Organomegaly - BACK Back: Normal Inspection - MUSCULOSKELETAL/EXTREMETIES Notes: There is tenderness to palpation over the anterior right knee joint with mild effusion. No erythema or warmth. Increased pain with extension and flexion of the knee. Nontender to palpation at the right hip and right ankle. DP pulses intact and equal. - NEURO Level of Consciousness: Awake, Alert, Appropriate Motor/Sensory: No Motor Deficit, No Sensory Deficit - DERM Integumentary: Warm, Dry, No Rash Course - Re-evaluation Re-evalutation: 05/17/20 14:57 Knee immobilizer and crutches for patient although do not necessarily think that this would be particularly beneficial for him. He likely needs a dynamic knee brace. He has had 2 sets of x-rays on this knee and do not think that a third set is helpful. He is in pain management so far aid in his pain relief we will sent home with topical Lidoderm and Voltaren. I spoke with our manager surgical, Riki Pierce. She double checked the patient's Medicaid and indeed he is supposed to be seeing [facility] he called them and he she was able to secure an appointment with them for 05/25/2020. Unfortunately patient cannot be for her directly from the ER to orthopedist. We will have him see [facility] care and then get his referral for orthopedist through them. Discussed this with patient and he agrees. We will discharge home. - Vital Signs Vital signs: Temp Pulse Resp BP Pulse Ox 98.1 F 93 16 120/83 97 05/17/20 14:03 05/17/20 14:03 05/17/20 14:03 05/17/20 14:03 05/17/20 14:03 Discharge - Discharge Clinical Impression: Right knee pain Qualifiers: Chronicity: acute Qualified Code(s): M25.561 - Pain in right knee Condition: Stable Disposition: HOME, SELF-CARE Additional Instructions: Please follow-up with [facility] rn at 1045 on May 25. They will be able to evaluate your knee further and then give you a referral. Please call Riki Pierce, our manager surgical should you have any difficulty. Continue to use your chronic pain medicine for pain as well as the topical medicine written for you here today. Prescriptions: Lidocaine [Topicaine 5] 1 applic TP TID #113 gel..gram. Diclofenac Sodium [Voltaren Arthritis Pain] 1 applic TP TID #20 gel..gram. Referrals: OSCAR GRIMM MD [ACTIVE STAFF] - 05/25/20 (at 10:45 AM as scheduled for follow up for your knee) WENCESLAO TERRELL DO [ACTIVE STAFF] - Follow up in 1 week (for ortho follow up)
== END 2020-05-17 14:56 | disposition home or self-care (01) ==
LOC: ER 13:54
DX: M25.561 Pain in right knee (principal); Z87.891 Personal history of nicotine dependence; I50.9 Heart failure, unspecified; I25.2 Old myocardial infarction; I11.0 Hypertensive heart disease with heart failure; J44.9 Chronic obstructive pulmonary disease, unspecified
CPT/HCPCS: 99283